=== PATIENT | female | born 1965 | race Caucasian/White ===

== ENCOUNTER → 2016-10-30 | Outpatient (CLI) | payer BC ==
[~2016-10-30] MED LIST: CEFTIN500 MG PO; KLOR-CON 1010 MEQ PO; MOBIC15 MG PO; NORCO 325 MG-7.1 TAB PO; NORVASC 5MG5 MG/TAB PO; PRIL40 PO; TYLENOL 325MG325 MG PO; ZOFRAN 4MG T4 MG/TAB PO; ZOFRAN ODT4 MG PO
== END ==
LOC: MC.RAD 07:20
DX: Z12.31 Encounter for screening mammogram for malignant neoplasm of breast (principal)

== ENCOUNTER → 2018-10-22 | Outpatient (CLI) | payer BC | LOC: MC.RAD 07:00 | DX: Z12.31 Encounter for screening mammogram for malignant neoplasm of breast (principal); R92.1 Mammographic calcification found on diagnostic imaging of breast ==

== ENCOUNTER → 2018-10-25 | Outpatient (CLI) | payer BC | LOC: MC.RAD 07:29 | DX: N63.20 Unspecified lump in the left breast, unspecified quadrant (principal); R92.1 Mammographic calcification found on diagnostic imaging of breast ==

== ENCOUNTER → 2019-04-28 | Outpatient (CLI) | payer BC | LOC: MC.RAD 12:59 | DX: R92.0 Mammographic microcalcification found on diagnostic imaging of breast (principal) | CPT/HCPCS: G0279 ==

== ENCOUNTER → 2019-11-03 | Outpatient (CLI) | payer BC | LOC: MC.RAD 07:45 | DX: Z12.31 Encounter for screening mammogram for malignant neoplasm of breast (principal) ==

== ENCOUNTER → 2020-11-04 | Outpatient (CLI) | payer BC | LOC: MC.RAD 08:30 | DX: Z12.31 Encounter for screening mammogram for malignant neoplasm of breast (principal) ==

== ENCOUNTER → 2022-01-24 | Outpatient (CLI) | payer BC | LOC: MC.RAD 08:45 | DX: Z12.31 Encounter for screening mammogram for malignant neoplasm of breast (principal) ==

== ENCOUNTER → 2023-03-30 | Outpatient (CLI) | payer BC ==
[~2023-03-30] MED LIST changes: +ALIVE HAIR, SK1 EACH PO; +ATIVAN 0.50.5 MG/TAB PO; +AUVELITY ER 451 EACH PO; +FIBER GUMMIES2.5 GM PO; +HCTZ12.5TAB; +HCTZ12.5TAB PO; +K-TAB20 PO; -KLOR-CON 1010 MEQ PO; +LASIX 40MG TABL40 MG PO; +MULTIVITAMIN200 MCG PO; +PAMELOR 25MG25 MG PO; +PAMELOR75 MG PO; +PROBIOTIC 2 BI1 EACH PO; +REXULTI2 MG PO; +XARELTO STARTER20 MG PO
== END ==
LOC: MC.RAD 08:13
DX: Z12.31 Encounter for screening mammogram for malignant neoplasm of breast (principal)

== ENCOUNTER 2023-07-16 13:04 | Inpatient (IN) | payer BC ==
[~2023-07-16] VITALS: Ht 160 cm; Wt 119.0 kg
[~2023-07-16 13:04] MED LIST changes: -ALIVE HAIR, SK1 EACH PO; -ATIVAN 0.50.5 MG/TAB PO; -AUVELITY ER 451 EACH PO; -FIBER GUMMIES2.5 GM PO; -HCTZ12.5TAB; -HCTZ12.5TAB PO; -K-TAB20 PO; +KLOR-CON M2020 MEQ PO; -LASIX 40MG TABL40 MG PO; -MULTIVITAMIN200 MCG PO; -PAMELOR 25MG25 MG PO; -PAMELOR75 MG PO; -PROBIOTIC 2 BI1 EACH PO; -REXULTI2 MG PO; -XARELTO STARTER20 MG PO
[2023-07-16 14:41] LABS: BASO % 0.2 % (0.0-2.0); GRAN # 4.4 K/mm3 (1.4-6.5); HEMOGLOBIN 11.9 g/dl (12.5-16.0); LYMPH # 1.5 K/mm3 (1.2-3.4); LYMPH % 23.8 % (20.0-51.0); MEAN CELL VOLUME 94 fl (80.0-100.0); MEAN CORPUSCULAR HEMOGLOBIN 31 pg (27-31); MEAN CORPUSCULAR HGB CONC 32 g/dl (33.0-37.0); MEAN PLATELET VOLUME 8.7 fl (7.4-10.4); MONO # 0.4 K/mm3 (0.1-0.6); MONO % 5.7 % (1.7-9.3); PLATELET COUNT 274 K/mm3 (130-400); REDCELL DISTRIBUTION WIDTH-CV 14.5 % (11.5-14.5)
[2023-07-16 14:42] LABS: INR 1.2 (0.8-3.0); PROTHROMBIN TIME 13.4 SECONDS (9.7-12.8)
[2023-07-16 14:43] LABS: HEMATOCRIT 36.7 % (37.0-47.0)
[2023-07-16 14:53] LABS: ALBUMIN 3.7 gm/dL (3.5-5.0); BILIRUBIN,TOTAL 0.5 mg/dL (0.2-1.2); CALCIUM 9.5 mg/dL (8.4-10.2); CREATININE, serum 0.81 mg/dL (0.57-1.11); POTASSIUM 3.3 mmol/L (3.5-4.5)
[2023-07-16 14:59] LABS: TROPONIN-I 0.014 ng/mL (0.00-0.033)
[2023-07-16] MEDS ORDERED: AUVELITY ER 451 EACH PO (15:56)
[2023-07-16] MEDS ORDERED: LASIX 40MG TABL40 MG PO (15:56)
[2023-07-16] MEDS ORDERED: PAMELOR75 MG PO (15:57)
[2023-07-16] MEDS ORDERED: PAMELOR 25MG25 MG PO (15:58)
[2023-07-16] MEDS ORDERED: REXULTI2 MG PO (15:58)
[2023-07-16] MEDS ORDERED: ATIVAN 0.50.5 MG/TAB PO (16:00)
[2023-07-16] MEDS ORDERED: HCTZ12.5TAB PO (16:01)
[2023-07-16 17:11] VITALS: BP 126/73; PULSE 96; TEMP 97.5
--- NOTE | 2023-07-16 17:15 | NUR ---
PT ADMITTED FROM ED WITH PE AND LL DVT. PT TRANSFERED TO BED. PT IS AXOX4. PT IT ON RA. PT'S VSS. PT ORIENTED TO ROOM AND FLOOR. CALL LIGHT GIVEN AND INSTRUCTED TO CALL WITH ALL NEEDS. NOTIFIED OF ARRIVAL AND DVT TO LEFT LEG. STATES WILL NEED TO CONSULT IR FOR IVC FILTER.
[2023-07-16 17:35] VITALS: BP_SYST 126
--- NOTE | 2023-07-16 17:41 | NUR ---
ON-CALL FOR RADIOLOGY. STATED TO PLACE ORDER FOR IVC FILTER INSERTION FOR TOMORROW. HE WILL NOT BE IN HOUSE TOMORROW. WILL ENDORSE TO NIGHT NURSE TO FOLLOW UP IN AM REGARDING SCHEDULE.
[2023-07-16 19:22] VITALS: BP 122/67; PULSE 89; TEMP 97.9
[2023-07-16 21:00] VITALS: BP_SYST 120
[2023-07-16 23:33] VITALS: BP 120/62; PULSE 93; TEMP 99.6
[2023-07-17] VITALS (18 sets, daily range): BP systolic 100–138; BP diastolic 65–82; PULSE 68–95; TEMP 96.8–97.8
--- NOTE | 2023-07-17 02:37 | NUR ---
UPON SHIFT ASSESSMENT, HALINA WAS CHEERFUL WITH A VISITOR BEDSIDE. HER LUNG SOUNDS WERE DIMINSHED, BUT NO CRACKLES OR WHEEZES NOTED. SHE IS A&O X 4 AND SKIN COLOR IS GOOD AND NO EVIDENT INCREASE IN WOB. BILATERAL LOWER EXTREMITIES SHOWED 1+ EDEMA. SHE HAD MOMENTARY DYSPNEA WHILE ANSWERING ASSESSMENT QUESTIONS. HER RT AC IV DID NOT INITIALL FLUSH, HOWEVER, A 3ML SYRINGE WAS USED AND EFFECTIVE; IV FLUSHED. HER VSS ARE WNL AND CALL LIGHT WITHIN REACH.
[2023-07-17 06:31] LABS: BASO % 0.2 % (0.0-2.0); GRAN # 2.7 K/mm3 (1.4-6.5); GRAN % 56.3 % (42.2-75.2); HEMOGLOBIN 11.3 g/dl (12.5-16.0); LYMPH # 1.7 K/mm3 (1.2-3.4); MEAN CELL VOLUME 93 fl (80.0-100.0); MEAN CORPUSCULAR HEMOGLOBIN 31 pg (27-31); MEAN CORPUSCULAR HGB CONC 33 g/dl (33.0-37.0); MEAN PLATELET VOLUME 8.7 fl (7.4-10.4); MONO # 0.4 K/mm3 (0.1-0.6); MONO % 8.1 % (1.7-9.3); PLATELET COUNT 232 K/mm3 (130-400); RED BLOOD COUNT 3.66 M/mm3 (4.10-5.30); REDCELL DISTRIBUTION WIDTH-CV 14.5 % (11.5-14.5)
[2023-07-17 06:34] LABS: HEMATOCRIT 33.9 % (37.0-47.0)
[2023-07-17 06:41] LABS: CALCIUM 9.2 mg/dL (8.4-10.2); CREATININE, serum 0.75 mg/dL (0.57-1.11); POTASSIUM 3.1 mmol/L (3.5-4.5)
--- NOTE | 2023-07-17 07:00 | NUR ---
PT RESTING IN BED. PT IS ON RA. PT IS SR ON TELE. PT IS NPO FOR IVC FILTER LATER TODAY. PT IS AXOX3 AND HAS CALL LIGHT WITHIN REACH AND INSTRUCTED TO CALL WITH ALL NEEDS.
--- NOTE | 2023-07-17 07:55 | NUR ---
HALINA WAS UP AND DANGLING BEDSIDE TOWARDS END OF SHIFT. SHE HAS MINIMAL BILATERAL LOWER EXTREMITY EDEMA +1, HOWEVER, SHE COMPLAINED OF KNEE PAIN R/T AN OLD INJURY. SHE DENIED CALF PAIN AND TENDERNESS. SKIN WAS COOL WITH NO ERYTHEMA. LUNG SOUNDS WERE CLEAR BUT DIMINSHED. SHE EXPERIENCED A SHORT PERIOD OF DYSPNEA WHILE AMBULATING TO THE BATHROOM. HER VSS ARE WNL AND CALL LIGHT IS WITHIN REACH. PEDAL PULSES PRESENT +1 HARD TO PALPATE.
--- NOTE | 2023-07-17 08:24 | NUR ---
0810-Discussed IVC filter with Pt. No provider has explained to her yet. Madelin ALVAREZ notified and states they will discuss with her. 0815- came bedside and explained procedure. Consent done with Joe WRIGHT from [facility]. Pt taken down to [facility].
--- NOTE | 2023-07-17 08:48 | NUR ---
SEE MERGE DOCUMENTATION FOR PROCEDURE LOG INCLUDING VITAL SIGNS.
--- NOTE | 2023-07-17 09:30 | NUR ---
PT BACK FROM MANAGER FIXED INCOME. RIGHT GROIN SITE C/D/I. PT GIVEN CALL LIGHT AND INSTRUCTED TO CALL WITH ALL NEEDS. EDUCATED ON BEDREST FOR TWO HOURS. PT'S VSS.
--- NOTE | 2023-07-17 09:52 | NUR ---
CARDIOLOGY CONSULTED. CHANGED TO FROM TO . MARTHA ASENCIO NOTIIFIED.
--- NOTE | 2023-07-17 13:14 | NUR ---
PATIENT SPO2 96% ON ROOM AIR. PATIENT AMBULATED IN HALLWAY SPO2 90% ON ROOM AIR. AMBULATED WITHOUT DIFFICULTY.
[2023-07-17] MEDS ORDERED: XARELTO STARTER20 MG PO (14:26)
--- NOTE | 2023-07-17 14:35 | NUR ---
Initial visit: Out And Out Cigar Maker Hand stopped by room on rounds. Pt was resting and content. Pt has no needs right now. Out And Out Cigar Maker Hand will follow up as needed.
--- NOTE | 2023-07-17 14:50 | NUR ---
SW met with pt this morning for initial intake. Pt was pleasant, cooperative and oriented to person, time, place and situation. She reports she was admitted to the hospital for SOB. She , has no children or siblings, but has a cousin, who resides in the [facility]. 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 Pt reports her primary care provider is Dr. Katelin Charles, ph# [phone] and she fills her medicines @ [facility]. Pt stated she does not need a ride home. Her car is parked in the parking lot and she plans to drive herself home @ discharge. No other concerns noted.
--- NOTE | 2023-07-17 15:30 | NUR ---
Iv and tele dc'd. Discharge instructions discussed with pt. Discussed new medicaitons and follow up appointments. Heart healthy diet discussed. All questions answered. PT wheeled out for discharge by Marline MERCADO and accompanied by friends.
== END 2023-07-17 15:38 | disposition home or self-care (01) | DRG 176 ==
LOC: COL.ER 13:04 → MEDICAL 15:38
PROVIDERS: Nurse Practitioner; Physician Assistant; ADMIT Internal Medicine
PROC: 06H03DZ Insertion of Intraluminal Device into Inferior Vena Cava, Percutaneous Approach (ICD-10-PCS; principal; 2023-07-17)
DX: I26.99 Other pulmonary embolism without acute cor pulmonale (principal); I82.412 Acute embolism and thrombosis of left femoral vein; I50.20 Unspecified systolic (congestive) heart failure; I82.432 Acute embolism and thrombosis of left popliteal vein; E87.6 Hypokalemia; K58.9 Irritable bowel syndrome, unspecified; N32.81 Overactive bladder; K21.9 Gastro-esophageal reflux disease without esophagitis; I44.7 Left bundle-branch block, unspecified; I45.81 Long QT syndrome; I11.0 Hypertensive heart disease with heart failure; F32.A Depression, unspecified; I48.91 Unspecified atrial fibrillation; F41.1 Generalized anxiety disorder; Z88.0 Allergy status to penicillin; Z79.899 Other long term (current) drug therapy; Z23 Encounter for immunization
CPT/HCPCS: J1644; J1650; J2250; J3010; J3480; Q9967

== ENCOUNTER 2023-07-23 16:44 | Observation (INO) | payer BC ==
[~2023-07-23] VITALS: Ht 160 cm; Wt 115.2 kg
[~2023-07-23 16:44] MED LIST changes: +ATIVAN 0.50.5 MG/TAB PO; +AUVELITY ER 451 EACH PO; +HCTZ12.5TAB PO; +K-TAB20 PO; -KLOR-CON M2020 MEQ PO; +LASIX 40MG TABL40 MG PO; +PAMELOR 25MG25 MG PO; +PAMELOR75 MG PO; +REXULTI2 MG PO; +XARELTO STARTER20 MG PO
[2023-07-23] MEDS ORDERED: HCTZ12.5TAB (17:02)
[2023-07-23 17:04] LABS: BASO % 0.4 % (0.0-2.0); GRAN # 8.1 K/mm3 (1.4-6.5); GRAN % 78.6 % (42.2-75.2); HEMATOCRIT 42.4 % (37.0-47.0); HEMOGLOBIN 14.2 g/dl (12.5-16.0); LYMPH # 1.4 K/mm3 (1.2-3.4); MEAN CELL VOLUME 91 fl (80.0-100.0); MEAN CORPUSCULAR HEMOGLOBIN 30 pg (27-31); MEAN CORPUSCULAR HGB CONC 34 g/dl (33.0-37.0); MEAN PLATELET VOLUME 8.3 fl (7.4-10.4); MONO # 0.7 K/mm3 (0.1-0.6); MONO % 6.3 % (1.7-9.3); PLATELET COUNT 406 K/mm3 (130-400); RED BLOOD COUNT 4.68 M/mm3 (4.10-5.30); REDCELL DISTRIBUTION WIDTH-CV 14.1 % (11.5-14.5)
[2023-07-23 17:38] LABS: TROPONIN-I 0.022 ng/mL (0.00-0.033)
[2023-07-23 17:39] LABS: ALBUMIN 4.5 gm/dL (3.5-5.0); BILIRUBIN,TOTAL 0.7 mg/dL (0.2-1.2); CALCIUM 10.3 mg/dL (8.4-10.2); CREATININE, serum 1.22 mg/dL (0.57-1.11); TOTAL PROTEIN 8.2 gm/dL (6.2-8.1)
[2023-07-23 17:45] LABS: POTASSIUM 2.9 mmol/L (3.5-4.5)
[2023-07-23 23:10] VITALS: BP 137/66; PULSE 91; TEMP 98.7
[2023-07-24] VITALS (10 sets, daily range): BP systolic 108–137; BP diastolic 32–71; PULSE 90–100; TEMP 98–99.3
--- NOTE | 2023-07-24 03:25 | NUR ---
MAYA WAS ADMITTED TO ROOM 319 FROM ED @ 2310 WITH TELEMETRY , RT AC DIFFUSIX IV AND VSS WERE 137/66, TEMP. 98.7, PULSE 91, O2 ON RA 96%. SHE WAS PLEASANT AND AXO X 4 AND REQUESTED APPLESAUCE. LUNG SOUNDS WERE CLEAR. ORIENTED TO ROOM, CALL LIGHT WITHIN REACH.
--- NOTE | 2023-07-24 06:30 | NUR ---
TOWARDS END OF SHIFT MAYA HAD RECIEVED 6 OF 8 BAGS OF 10 MGPOTASSIUM REPLACEMENT SINCE ADMISSION. VITAL SIGNS REMAIN WNL AND MAYA IS EAGER TO ORDER BREAKFAST WHICH SHE STATES IS AN IMPROVEMENT IN HER APPETITE. SHE DENIES PAIN AND ONLY EXPERIENCES SOB WHILE UP TO THE BATHROOM. VSS ARE CURRENTLY WNL.
[2023-07-24 09:04] LABS: BASO % 0.3 % (0.0-2.0); LYMPH # 1.4 K/mm3 (1.2-3.4); LYMPH % 19.7 % (20.0-51.0); MEAN CELL VOLUME 92 fl (80.0-100.0); MEAN CORPUSCULAR HGB CONC 33 g/dl (33.0-37.0); MEAN PLATELET VOLUME 8.6 fl (7.4-10.4); MONO # 0.6 K/mm3 (0.1-0.6); MONO % 8.1 % (1.7-9.3); PLATELET COUNT 315 K/mm3 (130-400); REDCELL DISTRIBUTION WIDTH-CV 14.4 % (11.5-14.5)
[2023-07-24 09:08] LABS: HEMOGLOBIN 11.4 g/dl (12.5-16.0); MEAN CORPUSCULAR HEMOGLOBIN 30 pg (27-31)
[2023-07-24] MEDS ORDERED: PAMELOR75 MG PO (09:20)
[2023-07-24 09:50] LABS: CALCIUM 8.7 mg/dL (8.4-10.2); CREATININE, serum 0.9 mg/dL (0.57-1.11); POTASSIUM 3.4 mmol/L (3.5-4.5)
[2023-07-24] MEDS ORDERED: HCTZ12.5TAB PO (11:06)
[2023-07-24] MEDS ORDERED: MULTIVITAMIN200 MCG PO (11:20)
[2023-07-24] MEDS ORDERED: FIBER GUMMIES2.5 GM PO (11:21)
[2023-07-24] MEDS ORDERED: ALIVE HAIR, SK1 EACH PO (11:21)
[2023-07-24] MEDS ORDERED: PROBIOTIC 2 BI1 EACH PO (11:21)
--- NOTE | 2023-07-24 14:12 | NUR ---
Initial visit: Bowling Ball Assembler stopped by room on rounds. Pt was resting and content. Pt has no needs right now. Bowling Ball Assembler will follow up as needed.
--- NOTE | 2023-07-24 16:35 | NUR ---
boil off worker and addiction social worker, Anthony, met with patient to discuss discharge planning. Patient reports she lives alone in [place]. Patient's point of contact is Aria Lay P# [phone]. Patient's primary care physician is Elder Charles and preferred pharmacy is [facility]. Patient denied any difficulty affording medications. Patient did not have a DPOA-HC but requested assistance with completing one. boil off worker assisted with the DPOA-HC form, patient appointed Aria and Lashanda as agents for her healthcare decisions. Patient signed the form, social workers, Shanell, signed as witnesses. boil off worker made copies, placed a copy in the patient's chart, provided the original and several copies to the patient. Patient expressed she has a cane, walker, grab bars and a shower chair at home. Patient reports prior to hospitalization she was independent with ADLS. Patient confirmed she has [facility] and [facility] for her prescriptions. Patient is able to drive and has no concerns about getting to and from appointments. Patient would like to return home at time of discharge. Discharge Plan: Home
--- NOTE | 2023-07-24 17:26 | NUR ---
Agree with student nurses assessment of the patient. Patient A&Ox4. VSS. IV CDI, fluids infusing. Denies pain and discomfort. Call light within reach
--- NOTE | 2023-07-24 20:30 | NUR ---
Initial shift assessment done- denies pain/denies N/V, eating and drinking water without problems, Tele on NSR, states sould be going home tomorrow- on xarelto for VTE- refusing SCD,s.
[2023-07-25] VITALS (7 sets, daily range): BP systolic 120–173; BP diastolic 65–74; PULSE 80–92; TEMP 97.6–98.9
[2023-07-25 05:14] LABS: BASO % 0.4 % (0.0-2.0); GRAN # 3.1 K/mm3 (1.4-6.5); GRAN % 57.6 % (42.2-75.2); HEMOGLOBIN 10.5 g/dl (12.5-16.0); LYMPH # 1.7 K/mm3 (1.2-3.4); LYMPH % 31.2 % (20.0-51.0); MEAN CELL VOLUME 94 fl (80.0-100.0); MEAN CORPUSCULAR HEMOGLOBIN 30 pg (27-31); MEAN CORPUSCULAR HGB CONC 32 g/dl (33.0-37.0); MEAN PLATELET VOLUME 8.4 fl (7.4-10.4); MONO # 0.6 K/mm3 (0.1-0.6); MONO % 10.2 % (1.7-9.3); PLATELET COUNT 280 K/mm3 (130-400); RED BLOOD COUNT 3.45 M/mm3 (4.10-5.30); REDCELL DISTRIBUTION WIDTH-CV 14.6 % (11.5-14.5)
[2023-07-25 05:21] LABS: HEMATOCRIT 32.4 % (37.0-47.0)
[2023-07-25 05:40] LABS: CREATININE, serum 0.8 mg/dL (0.57-1.11); POTASSIUM 3.6 mmol/L (3.5-4.5)
--- NOTE | 2023-07-25 05:56 | NUR ---
Quiet night- VSS, o2 sats 94% on room air, denies pain/SOB. Hopes to go home today
--- NOTE | 2023-07-25 07:55 | NUR ---
Patient sitting up in bed, A&Ox4. VSS. IV CDI. Denies pain and discomfort. Call light within reach
--- NOTE | 2023-07-25 10:19 | NUR ---
Cardiac Rehab Note: Met with patient at bedside to discuss heart failure education. Patient unaware of diagnosis. Reviewed importance of ejection fraction, s/s that are HF related, daily weight monitoring and when to call, sodium and fluid guidelines, medication compliance, and follow up appointment attendance. Heart Failure Discharge booklet and heart failure zones sheet reviewed and provided. Briefly discussed plan for ischemic workup. Informed patient that if started on new medications at discharge, as for copay cards/free trial offer cards/samples to support cost. Patient understands information, cardiac rehab flyer provided-Phase 3 program discussed.
--- NOTE | 2023-07-25 16:30 | NUR ---
Discharge paperwork reviewed with the patient. Patient verbalized an understanding to follow doctors orders. IV removed, tip intact. Gauze and coban applied. Nursing staff transported the patient by wheelchair to awaiting vehicle. No further needs expressed
== END 2023-07-25 16:38 | disposition home or self-care (01) ==
LOC: COL.ER 16:44 → MEDICAL 21:39
PROVIDERS: Emergency Medicine; Nurse Practitioner Family; ADMIT Internal Medicine
DX: I26.99 Other pulmonary embolism without acute cor pulmonale (principal); R06.02 Shortness of breath; E87.6 Hypokalemia; I10 Essential (primary) hypertension; I82.402 Acute embolism and thrombosis of unspecified deep veins of left lower extremity; E66.9 Obesity, unspecified; Z79.01 Long term (current) use of anticoagulants; Z87.891 Personal history of nicotine dependence; Z68.42 Body mass index [BMI] 45.0-49.9, adult
CPT/HCPCS: G0378; J3480; J7030; J7120

== ENCOUNTER → 2024-05-26 | Outpatient (CLI) | payer BC ==
[~2024-05-26] MED LIST changes: +ALIVE HAIR, SK1 EACH PO; +FIBER GUMMIES2.5 GM PO; +HCTZ12.5TAB; +MULTIVITAMIN200 MCG PO; +PROBIOTIC 2 BI1 EACH PO
== END ==
LOC: MC.RAD 08:28
DX: Z12.31 Encounter for screening mammogram for malignant neoplasm of breast (principal)